=== PATIENT | male | born 1970 | race Native Hawaiian/Other Pacific Islander ===

== ENCOUNTER 2021-12-17 11:31 | Outpatient (CLI) | payer BC ==
[~2021-12-17 11:31] MED LIST: AMOX875T8 PO; B6 FOLIC ACD OR; CITRACA1 OR; FLUT0.05 NAS; GNP MUCUS RELI400 MG OR; NAPROXEN SOD OR; VIT C/BIOFLV1000 MG OR; [UNRECOGNIZED DRUG - REMARK] OR
== END 2021-12-17 19:22 | disposition home or self-care (01) ==
LOC: LAB 11:31
PROVIDERS: ATTEND Internal Medicine
DX: Z01.818 Encounter for other preprocedural examination (principal); Z11.52 Encounter for screening for COVID-19
CPT/HCPCS: 87635; G2023; U0003